=== PATIENT | male | born 1980 | race Two or more races ===

== ENCOUNTER 2019-09-11 08:32 | Inpatient (IN) | payer OTHER ==
[~2019-09-11] VITALS: Ht 180.3 cm; Wt 88.9 kg
[2019-09-11] MEDS ORDERED: ESCI10TA PO (11:21)
[2019-09-11 11:25] VITALS: BP 141/74
[2019-09-11] MEDS ORDERED: HALOPERIDOL 5 MG TABLET PO PRN (11:45)
[2019-09-11] MEDS ORDERED: INFLUENZA VIRUS VACCINE QVS 2019-20 (3YR+)/PF 60 MCG/0.5 ML SYRINGE IM ONE ×2 (12:00→15:30)
[2019-09-11] MEDS: LORazepam 2 MG TABLET PO PRN (15:07)
[2019-09-11] MEDS: NICOTINE 21 MG/24 HOUR PATCH TD PRN (15:08)
[2019-09-11 17:13] VITALS: BP 144/83
[2019-09-11] MEDS: ZOLPIDEM TARTRATE 10 MG TABLET PO PRN (20:15)
[2019-09-12 00:53] VITALS: BP 139/80
[2019-09-12] MEDS: ESCITALOPRAM OXALATE 10 MG TABLET PO SCH (08:15)
[2019-09-12 08:18] VITALS: BP 152/100
[2019-09-12] MEDS: LORazepam 2 MG TABLET PO PRN ×2 (08:20→15:50)
[2019-09-12] MEDS: NICOTINE 21 MG/24 HOUR PATCH TD PRN (08:21)
[2019-09-12 09:19] VITALS: BP 140/83
[2019-09-12 09:26] LABS: BASOPHILS % (AUTO) 0.7 % (0.0-2.0); EOSINOPHILS % (AUTO) 2.1 % (1.0-6.0); HEMATOCRIT 47.4 % (41-53); HEMOGLOBIN 16.1 g/dL (13.5-17.5); LYMPHOCYTES # (AUTO) 1.4 K/uL (1.0-4.8); LYMPHOCYTES % (AUTO) 26.8 % (22.0-44.0); MEAN CORPUSCULAR HEMOGLOBIN 34.2 pg (26.0-34.0); MEAN CORPUSCULAR HGB CONC 33.9 G/dL (31.0-37.0); MEAN CORPUSCULAR VOLUME 101 fL (80-100); MONOCYTES # (AUTO) 0.6 K/uL (0.1-1.0); MONOCYTES % (AUTO) 10.6 % (2.0-9.0); NEUTROPHILS # (AUTO) 3.1 K/uL (1.8-7.7); NEUTROPHILS % (AUTO) 59.8 % (40.0-70.0); PLATELET COUNT (AUTO) 171 K/uL (150-450); RED CELL DISTRIBUTION WIDTH 13.7 % (11.5-14.5)
[2019-09-12 09:49] LABS: HEMOGLOBIN A1C 5.3 % (4.5-6.2)
[2019-09-12 10:42] LABS: ALANINE AMINOTRANSFERASE 53 U/L (12-78); ALBUMIN 3.4 g/dL (3.4-5.0); ALKALINE PHOSPHATASE 64 U/L (46-116); ANION GAP 8 mmol/L (8-16); ASPARTATE AMINOTRANSFERASE 43 U/L (15-37); BILIRUBIN,TOTAL 0.6 mg/dL (0.1-1.0); CALCIUM, TOTAL 8.9 mg/dL (8.8-10.5); CARBON DIOXIDE 28 mmol/L (22-29); CHLORIDE 104 mmol/L (98-107); CHOL/HDL RATIO 3.2 (4.2-7.3); CHOLESTEROL 267 mg/dL (131-200); CREATININE 0.73 mg/dL (0.60-1.30); FREE T4 (FREE THYROXINE) 0.75 ng/dL (0.76-1.46); GLOMERULAR FILTR. RATE CALC > 60 mL/min (>60); GLUCOSE,RANDOM 80 mg/dL (70-110); HDL CHOLESTEROL 83 mg/dL (40-60); LDL CHOL (CALC.) 162 mg/dL (0-130); POTASSIUM 4.6 mmol/L (3.5-5.1); SODIUM SERUM 140 mmol/L (136-145); TOTAL PROTEIN, SERUM 6.9 g/dL (6.4-8.2); TRIGLYCERIDES 112 mg/dL (15-150); UREA NITROGEN, BLOOD 13 mg/dL (7-18)
[2019-09-12] MEDS ORDERED: ACETAMINOPHEN 325 MG TABLET PO PRN (11:30)
[2019-09-12] MEDS ORDERED: ALBUTEROL SULFATE HFA 90 MCG/PUFF 8 GM INHALER IH PRN (11:30)
[2019-09-12] MEDS ORDERED: PETROLATUM,WHITE 28 GM JELLY TP PRN (11:30)
[2019-09-12] MEDS ORDERED: IBUPROFEN 400 MG TABLET PO PRN (11:30)
[2019-09-12] MEDS ORDERED: DOCUSATE SODIUM 100 MG CAPSULE PO PRN (11:30)
[2019-09-12] MEDS ORDERED: GuaiFENesin/D-METHORPHAN [SUGAR-FREE] 200-20MG/10 ML SYRUP UDCUP PO PRN (11:30)
[2019-09-12] MEDS ORDERED: ONDANSETRON HCL 4 MG TABLET PO PRN (11:30)
[2019-09-12] MEDS ORDERED: CloNIDine HCL 0.1 MG TABLET PO PRN (11:30)
[2019-09-12] MEDS ORDERED: MAGNESIUM HYDROXIDE SUSPENSION 30 ML UDCUP PO PRN (11:30)
[2019-09-12] MEDS ORDERED: LOPERAMIDE HCL 2 MG CAPSULE PO PRN (11:30)
[2019-09-12] MEDS ORDERED: NICOTINE 14 MG/24 HOUR PATCH TD PRN (11:30)
[2019-09-12] MEDS ORDERED: MAG HYDROX/AL HYDROX/SIMETH ES 30 ML SUSPENSION UDCUP PO PRN (11:30)
[2019-09-12 16:14] VITALS: BP 124/92
[2019-09-12] MEDS: ZOLPIDEM TARTRATE 10 MG TABLET PO PRN (20:42)
[2019-09-13 00:11] VITALS: BP 110/68
[2019-09-13 08:06] VITALS: BP 140/72
[2019-09-13] MEDS: ESCITALOPRAM OXALATE 10 MG TABLET PO SCH (08:17)
[2019-09-13] MEDS: LORazepam 2 MG TABLET PO PRN ×2 (08:24→14:53)
[2019-09-13] MEDS: NICOTINE 21 MG/24 HOUR PATCH TD PRN (08:24)
[2019-09-13 16:08] VITALS: BP 140/84
[2019-09-13] MEDS: ZOLPIDEM TARTRATE 10 MG TABLET PO PRN (20:32)
[2019-09-14 05:52] VITALS: BP 128/81
[2019-09-14] MEDS: ESCITALOPRAM OXALATE 10 MG TABLET PO SCH (08:02)
[2019-09-14 08:27] VITALS: BP 140/80
== END 2019-09-14 08:05 | disposition home or self-care (01) | DRG 885 ==
LOC: B2S 11:36
PROVIDERS: ADMIT Psychiatry & Neurology Psychiatry; ATTEND Psychiatry & Neurology Psychiatry
DX: F33.2 Major depressive disorder, recurrent severe without psychotic features (principal); F10.10 Alcohol abuse, uncomplicated; E78.5 Hyperlipidemia, unspecified; F17.200 Nicotine dependence, unspecified, uncomplicated; R03.0 Elevated blood-pressure reading, without diagnosis of hypertension; R74.0 Nonspecific elevation of levels of transaminase and lactic acid dehydrogenase [LDH]; Z79.899 Other long term (current) drug therapy
CPT/HCPCS: 83036; 84436; 84439; 90686